=== PATIENT | female | born 1965 | race Caucasian/White ===

== ENCOUNTER 2024-11-14 12:10 | Emergency (ER) | payer OTHER, SELFPAY ==
[2024-11-14 12:12] VITALS: BP 135/75
[2024-11-14 12:29] VITALS: BP 141/75
--- NOTE | 2024-11-14 13:00 | ED.GENMED ---
History of Present Illness
<Alonzo Tim MD, Resident - Last Filed: 11/14/24 15:58>
General
Chief Complaint: Dizziness
Source: patient and other (Coworker)
Exam Limitations: none
Time Seen by Provider: 11/14/24 12:30
Nursing documentation reviewed up to this point in time: agreed with
History of Present Illness
History of Present Illness:
58-year-old female with past medical history of right breast cancer with bilateral mastectomy, hypothyroidism comes to the ED due to insistence of dizziness, cold clamminess and right lower extremity weakness that happened while she was at work this
morning. She has had vertigo before and has a history of migraines but this was the first time she has experienced the symptoms. She has had nausea and vomited multiple times causing stomach cramps, does not report any fevers or chills. She does
not report any chest pain, shortness of breath, difficulty breathing, difficulty with eating or drinking or any headaches at this time. She does not have any abdominal pain.
Past History
<Alonzo Tim MD, Resident - Last Filed: 11/14/24 15:58>
Past History
ED Past Medical History: Hypothyroidism and Other (Migraines)
ED Past Surgical History: Gynecological (Bilateral breast mastectomy)
Social History
Employment: Employed
Review of Systems
<Alonzo Tim MD, Resident - Last Filed: 11/14/24 15:58>
Review of Systems
Allergies reviewed?: Yes
All Other Systems: ROS reviewed and negative except as documented in HPI and ROS
Constitutional: Reports chills; Denies fever or fatigue
EENT: Reports no symptoms
Respiratory: Reports no symptoms
Cardiac: Reports no symptoms
ABD/GI: Reports nausea and vomiting
: Reports no symptoms
Musculoskeletal: Reports other (Right lower extremity weakness that is now improved)
Skin: Reports no symptoms
Neurological: Reports weakness (Right lower extremity weakness which is now improved)
Endocrine: Reports no symptoms
Hematologic/Lymphatic: Reports no symptoms
Psychiatric: Reports no symptoms
Phy Exam
<Alonzo Tim MD, Resident - Last Filed: 11/14/24 15:58>
General Physical Exam
General Presentation: mild distress
General Skin: warm and dry
General Habitus: normal
General Mental: alert
Cardiovascular Exam
Cardiovascular Exam: regular rate/rhythm, no edema and no murmur
Pulmonary Exam
Pulmonary Exam: lungs clear, no respiratory distress, no crackles and no wheezing
Gastrointestinal Exam
Gastrointestinal Exam: normal bowel sounds, non tender, soft and non distended
Neurological Exam
Neurological Exam: alert, oriented x3, no motor deficits and speech normal
Musculoskeletal Exam
Musculoskeletal Exam: full ROM and no edema
Skin Exam
Skin Exam: normal color and warm/dry
Psychiatric Exam
Psychiatric Exam: normal mood/affect
Course
<Alonzo Tim MD, Resident - Last Filed: 11/14/24 15:58>
Orders/Labs/Results
Orders:
Orders
11/14/24 12:17
EKG [Electrocardiogram (*1)] Urgent
Reason for Study: Vertigo / Dizzy
11/14/24 12:18
EKG- Treatment ONCE
11/14/24 12:55
CT Head & Neck Angio W/wo IV Urgent
Comment:
Reason For Exam: Right lower extremity weakness
11/14/24 12:59
IV Insert/Care/Rem.- Treatment PRN
0.9% Sodium Chloride 500 ml [Nss] 500 ml IV BOLUS
Ondansetron Injectable [Zofran] 4 mg IV NOW STA
11/14/24 13:10
Complete Blood Count/With Diff Urgent
Comprehensive Metabolic Panel Urgent
Free T4 Urgent
Magnesium Urgent
TSH Reflex To Free T4 Urgent
11/14/24 13:16
Add On- LAB Urgent
Tests Added?: Troponin
11/14/24 13:20
Troponin I Routine
11/14/24 13:43
Physical Therapy Consult [Pt Eval And Treat] Urgent
Treatment: Vestibular
Activity Level: Out of Bed-Early Mobility
Abnormal Lab Results
11/14/24
13:10
Lymphocytes % 19.3 L %
(20.5-51.1)
BUN 18 H mg/dl
(7-17)
Glucose 130 H mg/dl
(70-99)
TSH (Reflex) 0.23 L uIU/ml
(0.47-4.68)
11/14/24 13:10
11/14/24 13:10
Vital Signs
Initial and Last Documented VS:
Initial Vital Signs
Temp Pulse Resp BP Pulse Ox
97.6 F 85 20 135/75 100
11/14/24 12:12 11/14/24 12:12 11/14/24 12:12 11/14/24 12:12 11/14/24 12:12
Last Documented Vital Signs
Temp Pulse Resp BP Pulse Ox
97.6 F 87 16 141/75 100
11/14/24 12:12 11/14/24 14:05 11/14/24 12:45 11/14/24 12:29 11/14/24 14:05
<Robbi Dorado, DO - Last Filed: 11/14/24 14:08>
Orders/Labs/Results
Orders:
Orders
11/14/24 12:17
EKG [Electrocardiogram (*1)] Urgent
Reason for Study: Vertigo / Dizzy
11/14/24 12:18
EKG- Treatment ONCE
11/14/24 12:55
CT Head & Neck Angio W/wo IV Urgent
Comment:
Reason For Exam: Right lower extremity weakness
11/14/24 12:59
IV Insert/Care/Rem.- Treatment PRN
0.9% Sodium Chloride 500 ml [Nss] 500 ml IV BOLUS
Ondansetron Injectable [Zofran] 4 mg IV NOW STA
11/14/24 13:10
Complete Blood Count/With Diff Urgent
Comprehensive Metabolic Panel Urgent
Free T4 Urgent
Magnesium Urgent
TSH Reflex To Free T4 Urgent
11/14/24 13:16
Add On- LAB Urgent
Tests Added?: Troponin
11/14/24 13:20
Troponin I Routine
11/14/24 13:43
Physical Therapy Consult [Pt Eval And Treat] Urgent
Treatment: Vestibular
Activity Level: Out of Bed-Early Mobility
Abnormal Lab Results
11/14/24
13:10
Lymphocytes % 19.3 L %
(20.5-51.1)
BUN 18 H mg/dl
(7-17)
Glucose 130 H mg/dl
(70-99)
TSH (Reflex) 0.23 L uIU/ml
(0.47-4.68)
11/14/24 13:10
11/14/24 13:10
Vital Signs
Initial and Last Documented VS:
Initial Vital Signs
Temp Pulse Resp BP Pulse Ox
97.6 F 85 20 135/75 100
11/14/24 12:12 11/14/24 12:12 11/14/24 12:12 11/14/24 12:12 11/14/24 12:12
Last Documented Vital Signs
Temp Pulse Resp BP Pulse Ox
97.6 F 87 16 141/75 100
11/14/24 12:12 11/14/24 14:05 11/14/24 12:45 11/14/24 12:29 11/14/24 14:05
<Alonzo Tim MD, Resident - Last Filed: 11/14/24 15:58>
MDM/Problems Addressed
Differential Diagnosis Includes:
TIA, vasovagal syncope, electrolyte imbalance, hypothyroidism, myocardial ischemia
MDM/Problems Addressed:
58-year-old female with past medical history of right breast cancer with bilateral mastectomy, hypothyroidism comes to the ED due to insistence of dizziness, cold clamminess and right lower extremity weakness that happened while she was at work this
morning.
Symptoms possibly related to vasovagal versus TIA. Have now resolved but still having some nausea with sitting upright.
Will give Zofran for nausea control along with IVF.
Will get CT head and neck angiogram to check for any possibility of carotid stenosis
Will get CT head without contrast as well
Get basic labs including CBC, CMP, TSH, mag
EKG shows some changes in the T waves in lead V1. Will get Troponin levels. Does not have any chest pain currently.
PT/Eval for vestibular therapy, negative Winnie-Hallpike, able to ambulate but nauseous when getting up
TSH levels low (most likely due to therapy with Levothyroxine, dose too high probably) T4 levels in normal range
Troponin negative, less likely cardiac related
Awaiting CT Head and Neck Angio
No abnormalities noted on CT Head and Neck, most likely patient was dealing with vasovagal syncope. She is advised to follow up with her primary care physician for further management.
<Alonzo Tim MD, Resident - Last Filed: 11/14/24 15:58>
*Pulse Oximetry
SaO2: 100
Oxygen Mode of Delivery: Room air
Patient hypoxic: no
*Critical Care Note
Total Time (30-74mins, 75-104mins- exclusive of procedures): Not Applicable
ED Attending Note
<Alonzo Tim MD, Resident - Last Filed: 11/14/24 15:58>
-
Portions of this chart may have been created with voice recognition software.� Occasional wrong word or��sound alike� substitutions may have occurred due to the inherent limitations of voice recognition software.
<Robbi Dorado, DO - Last Filed: 11/14/24 14:08>
ED Attending Note
Patient seen and examined by attending physician: Yes
I performed a history and physical exam of patient and discussed management with resident, I reviewed resident's note and agree with documented findings and plan of care.: Yes
ED Attending Note:
I have reviewed there with history treatment plan by Alonzo Tim MD.
Physical Exam
General: no apparent distress, not acutely ill
Neck: supple. no meningeal signs. normal posterior pharynx
Heart: s1/s2 regular rate and rhythm, no murmur. equal radial
pulses.
HEENT: Pupils equal round reactive to light, EOMI
Lungs: no acute respiratory distress. clear bilaterally
Abdomen: normal bowel sounds. not tender. no CVAT
Neuro: alert and oriented. no focal neurological deficits cranial nerves II through XII intact
Skin: no rash
Psychiatric: well kept. interactive and cooperative
Extremities: no edema. no calf tenderness. negative homans. good distal pulses
58-year-old female with dizziness nausea vomiting and near syncope. Suspect vasovagal cause. CT head pending, will evaluate with angiography. Due to patient's transient right leg numbness.
Discharge Plan
Departure
Patient Disposition: Home (Routine Discharge)
Date of Disposition: 11/14/24
Time of Disposition: 15:57
Patient with high blood pressure during this ER visit?: Yes
Condition: Good
Covid-19: Not Applicable
Discharge Problem:
Dizziness
Instructions: Dizziness, Nonvertigo, (DC), Vasovagal Response (DC)
Prescriptions:
New
ondansetron HCl 4 mg tablet
4 mg PO Q8H PRN (Reason: nausea and vomiting) Qty: 14 0RF
Referrals:
Linda Mejia MD [Family Provider, Internal Medicine] - Call in 1-3 days for appt
Referral Note: Please follow up with your PCP regarding your dizziness.
Activity Restrictions/Additional Instructions:
As discussed, please follow up with your PCP regarding your dizziness, and low TSH levels. They might need to make adjustments to your thyroid medication.
We were not able to find any acute findings on the Head and Neck CT scans so most likely your nausea and dizziness is related to vasovagal sycope
Please return to the ED if you have any worsening symptoms and sensory/motor loss or any worsening headaches, fevers or chills.
Interventions
Interventions:
*Risk Screen - Suicide Last Done: 11/14/24 12:12
*General Assessment Last Done: 11/14/24 12:12
*Neglect/Abuse Screening Last Done: 11/14/24 12:12
*ED- Fall Risk Assessment Last Done: 11/14/24 12:12
*ED COVID-19 Vaccine History Last Done: 11/14/24 12:12
ED- Neurological Assessment Last Done: 11/14/24 12:39
ED Swallowing Screen Last Done: 11/14/24 12:39
Discharge Date and Time
Print Language: MACEDONIAN
[2024-11-14] MEDS: NSS 500 IV (13:11)
[2024-11-14] MEDS: ZOFRAN 4 MG IV (13:11)
[2024-11-14 13:16] LABS: Hematocrit 38.2 % (37.0-47.0); Hemoglobin 13.1 g/dL (12.0-16.0); Mean Corp Hgb Conc. 34.3 g/dL (33.0-37.0); Mean Corpuscular Volume 89.3 fL (81.0-99.0); Nucleated Red Blood Cells % 0 %; Platelet Count 218 10^3/uL (130-400); Red Cell Dist. Width 12.4 % (11.5-14.5)
[2024-11-14 13:30] LABS: ALT (SGPT) 23 U/L (0-35); AST (SGOT) 25 U/L (14-36); Albumin 4.4 g/dl (3.5-5.0); Alkaline Phosphatase 72 U/L (38-126); Blood Urea Nitrogen 18 mg/dl (7-17); Calcium 9.3 mg/dl (8.4-10.2); Carbon Dioxide 23 mmol/L (22-30); Chloride 107 mmol/L (98-107); Glucose 130 mg/dl (70-99); Magnesium 1.8 mg/dl (1.6-2.3); Potassium 4.1 mmol/L (3.5-5.1); Sodium 138 mmol/L (135-145); Total Protein 7.0 g/dl (6.3-8.2); eGFR > 60.00
[2024-11-14 13:49] LABS: Troponin I < 0.012 ng/ml
[2024-11-14 14:34] VITALS: BP 130/71; BP 132/76; PULSE 91
[2024-11-14 16:00] VITALS: BP 121/77
== END 2024-11-14 16:07 | disposition home or self-care (01) ==
LOC: EMR 12:10
PROVIDERS: EMERGENCY PHYSICIAN Emergency Medicine; FAMILY PHYSICIAN Student in an Organized Health Care Education/Training Program
DX: R42 Dizziness and giddiness (principal); E03.9 Hypothyroidism, unspecified; Z85.3 Personal history of malignant neoplasm of breast; Z90.13 Acquired absence of bilateral breasts and nipples
CPT/HCPCS: 96374; 96361; 99284; 70496; 70498; 80053; 83735; 84439; 84443; 84484; 85025; 93005; Q9967